=== PATIENT | female | born 1980 | race Caucasian/White ===

== ENCOUNTER 2022-09-10 01:23 | Emergency (ER) | payer BC, SELFPAY ==
[2022-09-10 01:42] VITALS: BP 144/79; PULSE 88; RESP 16; TEMP 37.1; O2SAT 97; BMI 42.9
--- NOTE | 2022-09-10 02:09 | CRLHL7_ITS ---
For Patients: As a result of the Century Cures Act, medical imaging exams and procedure reports are released immediately into your electronic medical record. You may view this report before your referring provider. If you have questions, please contact your health care provider. INDICATION: Medial joint line pain after fall. COMPARISON: None available. FINDINGS: The left knee was examined with AP, lateral, and sunrise views for a total of three views. There is no sign of fracture or dislocation. There is mild narrowing of the medial joint compartment with no additional degenerative change, findings of minimal primary osteoarthritis. The lateral joint compartment is normal in height. There is mild lateral patellar tilt, with no additional abnormality of the patellofemoral articulation. There is no sign of a joint effusion. No soft tissue abnormality is seen. IMPRESSION: No sign of acute osseous injury. Mild medial joint compartment primary osteoarthritis. Mild lateral patellar tilt. Dictated by Jarad Hanson MD @ 09/10/2022 2:53:12 AM (Electronically Signed)
--- NOTE | 2022-09-10 02:10 | ED_ITS ---
HPI - General Adult General Chief complaint: Extremity Pain/Injury, Lower Stated complaint: Left Knee Injury Time Seen by Provider: 09/10/22 01:41 Source: patient and family Mode of arrival: ambulatory Limitations: no limitations History of Present Illness HPI narrative: 42-year-old female with left knee injury tonight. She was walking across hard wood floor with socks on when she suddenly slipped. This caused her left knee to just out to the side and caused her to fall forward. She did catch herself somewhat and was able to help get herself up to standing but could not fully bear weight. She went to the bathroom and then went back to the bed with the help of her . She tried applying ice, did not take any medication. Pain is located in the posterior knee but mainly in the medial joint line, s urrounding the patellar tendon insertion area. She has sprained this knee in the past but no major history of severe injury or prior surgery. No history of DVT or PE. No other areas of injury identified. She states that her past medical history is benign, no major long-term health problems. No prescription medicines. Allergies to penicillin and strawberries. No intoxication. ROS is negative for other generalized, skin or musculoskeletal concerns. Related Data Allergies Allergy/AdvReac Type Severity Reaction Status Date / Time Penicillins Allergy Intermediate Verified 09/10/22 01:41 strawberries Allergy Intermediate Uncoded 09/10/22 01:41 [facility] Social History Smoking Status: Never smoker Do you use any of these nicotine containing products: None Exam Const: Vital Signs, click to edit/add: Vital Signs - 24 hr 09/10/22 01:42 Temperature 98.8 F Pulse Rate [Right Pulse Oximeter] 88 Respiratory Rate 16 Blood Pressure [Ri ght Upper Arm] 144/79 H Pulse Oximetry 97 Oxygen Delivery Me thod Room Air Documenting provider has reviewed patient's vital signs: yes Common normals: no apparent distress and alert General appearance: cooperative, comfortable and well kempt HENMT: Common normals: normocephalic Head and scalp: normocephalic Eye: General eye: normal appearance of both eyes Resp: Common normals: no use of accessory muscles Effort & inspection: able to speak in complete sentences Cardio: Common normals: regular rate and peripheral pulses 2+ throughout Rate: regular rate Peripheral pulses: pulses 2+ throughout Extremity: Other: Right knee with normal range of motion, no effusion, normal strength min, no instability. Left knee has point tenderness along the medial joint line but no effusion or swelling. There is mild tenderness in the popliteal fossa but not on the hamstring tendons, patellar tendon, tibial plateau. Left ankle without swelling, bony tenderness or deformity. Left calf and left thigh appear normal with no bruising or swelling. Back on the left knee, varus and valgus maneuvers do localized tenderness to the medial joint line and cartilage area. No ligamentous instability. Neuro: Sensorium/orientation: alert Speech: speech normal Psych: Appearance: well kempt Attitude: engaged Activity/motor behavior: appropriate eye contact Insight: insight good Judgement: judgment good Skin: Common normals: no rashes or lesions noted General skin exam: no rashes or lesions noted Course Vital Signs Vital signs: Initial Vital Signs Temperature 98.8 F 09/10/22 01:42 Temperature Source Temporal Artery Scan 09/10/22 01:42 Pulse Rate 88 09/10/22 01:42 Respiratory Rate 16 09/10/22 01:42 Blood Pressure 144/79 H 09/10/22 01:42 Blood Pressure Mean 100 09/10/22 01:42 Pulse Oximetry 97 09/10/22 01:42 Oxygen Delivery Method Room Air 09/10/22 01:42 Vital Signs Temperature 98.8 F 09/10/22 01:42 Pulse Rate 88 09/10/22 01:42 Respiratory Rate 16 09/10/22 01:42 Blood Pressure 144/79 H 09/10/22 01:42 Pulse Oximetry 97 09/10/22 01:42 Oxygen Delivery Method Room Air 09/10/22 01:42 Temperature 98.8 F 09/10/22 01:42 Pulse Rate 88 09/10/22 01:42 Respiratory Rate 16 09/10/22 01:42 Blood Pressure 144/79 H 09/10/22 01:42 Pulse Oximetry 97 09/10/22 01:42 Oxygen Delivery Method Room Air 09/10/22 01:42 Medical Decision Making MDM Narrative Medical decision making narrative: Suspect mild internal knee derangement. X-ray recommended. Will give Toradol 10 mg p.o. x1. Anticipate normal x-ray, will be placed in knee immobilizer, may move to a hinged knee brace if she prefers, can purchase outpatient. Will be given crutches, instructions on Tylenol and NSAIDs and orthopedic follow-up if not improving in 7 days. Update: X-ray reviewed, reviewed plan of care with patient. Possible patellar subluxation that spontaneously reduced, high riding laterally deviated patella noted on x-ray. Will be placed in a knee immobilizer. Was given Toradol, is helping at rest. Counseled on ice, crutches and follow-up with ortho if symptoms are not improving in 7 days, verbalized understanding and agreement. Imaging Data knee xr: Attestation: I have reviewed the pertinent imaging results. My impression: No fracture. No effusion. Chronically laterally deviated high riding patella. At risk of subluxation. Radiologist's impression: IMPRESSION: No sign of acute osseous injury. Mild medial joint compartment primary osteoarthritis. Mild lateral patellar tilt. Discharge Plan Discharge Clinical Impression: Knee sprain Patient Disposition: Home w/ Parent or Adult Condition: Stable Instructions: Knee Sprain (DC) Additional Instructions: There are no signs of fracture on your x-ray. I do suspect a sprain of the MCL ligament and your medial meniscus. Often, these heal on their own without any complication. As we also discussed, this could have been a patellar subluxation, a common condition in women where the kneecap will slide slightly out of place and then back in place. If it happens on a repeated basis, there are treatments and interventions that can be made. Your x-ray was suggested that you are at risk of this though I cannot prove that this is what happened tonight. Elevate, rest and apply ice for the next 24 hours. Use crutches until you feel like you can safely bear weight which will likely be in 1-2 days. We will give you a knee brace that is probably a bit overkill. You may switch to a simpler [id number] brace at your convenience. If your symptoms are still very bothersome in 7 days, make a follow-up appointment with 1 of our orthopedic providers. Often, these types of injuries heal without complication and do not need an MRI unless you are still symptomatic longer than the expected time frame. Activity Level: Activity as Tolerated Discharge Diet: Regular Stand Alone Forms: [employer] Info Instructions
[2022-09-10] MEDS: KETOROLAC 10 MG TABLET PO (02:29)
== END 2022-09-10 03:26 | disposition home or self-care (01) ==
LOC: ED 03:11
PROVIDERS: Emergency Provider Family Medicine
DX: S83.92XA Sprain of unspecified site of left knee, initial encounter (principal); W01.0XXA Fall on same level from slipping, tripping and stumbling without subsequent striking against object, initial encounter
CPT/HCPCS: 73562; 99283; A9270

== ENCOUNTER 2024-08-15 21:02 | Emergency (ER) | payer BC, SELFPAY ==
--- OUTSIDE RECORDS SUMMARY | 2024-08-15 21:04 | XMS_ITS | Clinical Summary ---
Author Organization [facility] Address [facility] [place] [address] Care Team Providers Care House Mover Supervisor Name Role Phone Amalia Gonzalez MD Primary Care Provider + [phone] Allergies Active Allergy Reactions Criticality Noted Date Comments Benzoyl Peroxide 06/23/2016 Penicillins 06/23/2016 [place] Extract 06/23/2016 Medications lidocaine (LMX4) 4 % external cream Apply topically every 2 hours as needed (hemorrhoid pain) 45 g 2 Active multivitamin w/minerals (MULTI-VITAMIN) tablet Take 1 tablet by mouth daily Active Social History Tobacco Use Types Packs/Day Years Used Date Smoking Tobacco: Never Smokeless Tobacco: Never Tobacco Cessation:Counseling Given: Not Answered Alcohol Use Standard Drinks/Week Comments Not Asked 0 (1 standard drink = 0.6 oz pur e alcohol) rarely Adolescent Education Answer Date Record ed Getting School Help Needed Not on file 02/09 Comments No Sex and Gender Information Value Date Recorded Sex Assigned at Not on file Legal Sex Female 1:57 PM [employer] Gender Identity Not on file Sexual Orientation Not on file Last Filed Vital Signs Vital Sign Reading Time Taken Comments Blood Pressure 131/75 08/11/2022 10:20 AM CDT Pulse 61 08/11/2022 10:20 AM CDT Temperature 36.7 C (98.1 F) 01/26/2022 1:08 PM CDT Respiratory Rate 16 08/11/2022 10:20 AM CDT Oxygen Saturation 97% 08/11/2022 10:20 AM CDT Inhaled Oxygen Concentration - - Weight 113.4 kg (250 lb) 08/11/2022 8:56 AM CDT Height 162.6 cm (5' 4) 08/11/2022 8:56 AM CDT Body Mass Index 42.91 08/11/2022 8:56 AM CDT Plan of Treatment Health Maintenance Due Date Last Done Comments ADVANCE CARE PLANNING 1980 ANNUAL REVIEW OF HM ORDERS 1978 CT COLONOGRAPHY 1978 DIABETES SCREENING 1978 FIT 1978 FLEX SIG 1978 sDNA (Cologuard) 1978 HIV SCREENING 1993 HEPATITIS C SCREENING 1996 PAP 1999 LIPID 2018 YEARLY PREVENTIVE VISIT 04/03/2023 04/03/2022 COVID-19 Vaccine ( season) 2024 06/05/2022, 06/09/2021, 08/12/2020, Additional history exists INFLUENZA VACCINE (#1) 2024 , 04/01/2021, 04/07/2020, Additional history exists MAMMO SCREENING 04/04/2024 04/04/2022 PHQ-2 (once per calendar year) 2024 DTAP/TDAP/TD IMMUNIZATION (3 - Td or Tdap) 06/02/2024 06/02/2014, 02/19/2012, 06/09/2004 COLONOSCOPY 08/12/2027 08/11/2022, 08/11/2022 COLORECTAL CANCER SCREENING 08/12/2027 ZOSTER IMMUNIZATION (1 of 2) 2028 HEPATITIS B IMMUNIZATION Completed 003, 01/13/2002, 12/12/2001 HPV IMMUNIZATION Aged Out No longer e ligible based on patient's age to complete this topic MENINGITIS IMMUNIZATION Aged Out No l onger eligible based on patient's age to complete this topic Pneumococcal Vaccine: Pediatrics (0 to 5 Years) and At-Risk Patients (6 to 49 Years) Aged Out No longer eligible based on patient's age to complete this topic Procedures Procedure Name Priority Date/Time Associated Diagnosis Comments COLONOSCOPY Routine 08/11/2022 8:52 AM CDT from Last 3 Months or Most Recently Relevant to Health Maintenance Results * COLONOSCOPY (08/11/2022 8:52 AM CDT) [facility] [address] COLONOSCOPY [place] [address] [place] [address] Patient Name: Nela Vallejo Procedure Date: 08/11/2022 8:52 AM Date of : 1980 Admit Type: Outpatient Age: 42 Room: 1 Note Status: Finalized Attending MD: Citlali Contreras MD Total Sedation Time: 17 minutes Instrument Name: 525 [id number] Adult Colon Procedure: Colonoscopy Indications: Rectal bleeding Providers: Citlali Contreras MD, Martha Hernadez RN Referring MD: Medicines: Midazolam 3 mg IV, Fentanyl 100 micrograms IV Complications: No immediate complications. Procedure: Pre-Anesthesia Assessment: - Prior to the procedure, a History and Physical was performed, and patient medications and allergies were reviewed. The patient is competent. The risks and benefits of the procedure and the sedation options and risks were discussed with the patient. All questions were answered and informed consent was obtained. Patient identification and proposed procedure were verified by the physician and the nurse in the pre-procedure area. Mental Status Examination: alert and oriented. Airway Examination: normal oropharyngeal airway and neck mobility. Respiratory Examination: clear to auscultation. CV Examination: normal. Prophylactic Antibiotics: The patient does not require prophylactic antibiotics. Prior Anticoagulants: The patient has taken no anticoagulant or antiplatelet agents. ASA Grade Assessment: II - A patient with mild systemic disease. After reviewing the risks and benefits, the patient was deemed in satisfactory condition to undergo the procedure. The anesthesia plan was to use moderate sedation / analgesia (conscious sedation). Immediately prior to administration of medications, the patient was re-assessed for adequacy to receive sedatives. The heart rate, respiratory rate, oxygen saturations, blood pressure, adequacy of pulmonary ventilation, and response to care were monitored throughout the procedure. The physical status of the patient was re-assessed after the procedure. After obtaining informed consent, the colonoscope was passed under direct vision. Throughout the procedure, the patient's blood pressure, pulse, and oxygen saturations were monitored continuously. The colonoscope 525 was introduced through the anus and advanced to the cecum, identified by appendiceal orifice and ileocecal valve. The colonoscopy was performed without difficulty. The patient tolerated the procedure well. The quality of the bowel preparation was good. Findings: The perianal and digital rectal examinations were normal. Internal hemorrhoids were found during retroflexion. The hemorrhoids were Grade I (internal hemorrhoids that do not prolapse). The exam was otherwise without abnormality on direct and retroflexion views. Impression: - Internal hemorrhoids. - The examination was otherwise normal on direct and retroflexion views. - No specimens collected. Recommendation: - Discharge patient to home. - Patient has a contact number available for emergencies. The signs and symptoms of potential delayed complications were discussed with the patient. Return to normal activities tomorrow. Written discharge instructions were provided to the patient. - Repeat colonoscopy in 5 years for screening purposes. Procedure Code(s): --- Professional --- 00072, Colonoscopy, flexible; diagnostic, including collection of specimen(s) by brushing or washing, when performed (separate procedure) Diagnosis Code(s): --- Professional --- K64.0, First degree hemorrhoids K62.5, Hemorrhage of anus and rectum CPT copyright 2020 [employer]. All rights reserved. The codes documented in this report are preliminary and upon advertising vice president review may be revised to meet current compliance requirements. Electronic Signature by Dr Citlali Contreras Citlali Contreras MD 08/11/2022 10:11:50 AM I was physically present for the entire viewing portion of the exam. Citlali Contreras MD Number of Addenda: 0 Note Initiated On: 08/11/2022 8:52 AM Scope Withdrawal Time: 0 hours 9 minutes 22 seconds Total Procedure Duration: 0 hours 15 minutes 45 seconds Scope In: 9:39:29 AM Scope Out: 9:55:14 AM RADIOLOGY RESULTS 08/11/2022 8:52 AM CDT us Citlali Contreras MD PROCEDURES Final Re sult RADIOLOGY RESULTS from Last 3 Months or Most Recently Relevant to Health Maintenance Insurance [facility] Care Teams House Mover Supervisor Relationship Specialty [place] [address] [place], [place] [id number] PCP - General Family Medicine 08/11/22
--- OUTSIDE RECORDS SUMMARY | 2024-08-15 21:05 | XMS_ITS | Clinical Summary ---
Author Organization [employer] Address [facility] [place] [address] Care Team Providers Care Cvicu Rn Name Role Phone Leigh Sidhu Katherine L THERMOFORMING OPERATOR Unavailable [phone] Nathaniel Bashir Primary Care Provider Allergies Active Allergy Reactions Criticality Noted Date Comments Benzoyl Peroxide 07/18/2006 edema Penicillins Rash 07/18/2006 [place] Edema 06/26/2016 Facial swelling Medications cetirizine (ZYRTEC) 10 mg tablet Take 1 tablet by mouth once daily. 0 0 Active metroNIDAZOLE 1 % topical gel APPLY TOPICALLY TO THE FACE ONCE DAILY 0 Active medication order composer Multivitamins 0 0 Active SUMAtriptan (IMITREX) 100 mg tabletIndicatio ns:Other migraine without status migrainosus, not intractable Take 1 Tablet (100 mg) by mouth every 2 hours if needed for Migraine. Give at minimum 2hrs apart. Max Dose: 200mg per 24hrs. 10 Tablet 3 3 Active buPROPion (WELLBUTRIN XL) 150 mg Extended-Releas e tabletIndicatio ns:Morbid obesity with BMI of 40.0-44.9, adult (HC) Take 1 Tablet (150 mg) by mouth once daily in the morning. 14 Tablet 4 Active buPROPion (WELLBUTRIN XL) 300 mg Extended-Releas e tabletIndicatio ns:Morbid obesity with BMI of 40.0-44.9, adult (HC) Take 1 Tablet (300 mg) by mouth once daily. Take after completing 14 days of 150mg dose. 90 Tablet 4 Active Active Problems Problem Noted Date Diagnosed Date Cyst of bone of right foot 06/04/2024 Class 3 severe obesity with body mass index (BMI) of 40.0 to 44.9 in adult 11/26/2023 Prediabetes 11/26/2023 Neuropathy 11/26/2023 Plantar fasciitis 11/27/2018 Environmental allergies 01/05/2009 Other acne 07/18/2006 Esophageal reflux 07/18/2006 Hiatal hernia 07/18/2006 Migraine, unspecified, witho ut mention of intractable migraine without mention of status migrainosus 05/21/1998 Resolved Problems Problem Noted Date Diagnosed Date Resolved Date AMA (advanced maternal age) multigravida 35+ 4 10/17/2023 Supervision of other normal 04/07/2014 10/17/2023 PROM (premature rupture of membranes) 08/14/2012 05/04/2020 Supervision of normal first 12/21/2011 04/07/2014 Hyperprolactinemia 06/03/2010 2 Diaphragmatic hernia without mention of obstruction or gangrene 07/18/2006 08/25/2011 Encounters Date Type Department Care Team Description 06/04/2024 11:30 AM WORKERS COMPENSATION CLAIMS SUPERVISOR Office Visit [facility] [id number] [place] [id number] Nathaniel Bashir PA Pre-Op Exam (06/09/24, cyst removal on foot ) 06/04/2024 Travel from Last 3 Months Immunizations Immunization Administration Dates Next Due AMB Influenza, IIV4 PF (=>6 mos Flulaval,Fluzone Fluarix)(Flu Clinic Only) 04/07/2020 COVID-19 vaccine (Moderna 100mcg/0.5mL) PF, MDV 07/15/2020 Hepatitis B (Adult) 06/19/2002,01/13/2002,2001 Influenza Virus, Unspecified 04/20/2016 Influenza, IIV3 (Age >=3 years) 02/27/2013,03/18,07/05/2006 Influenza, IIV4 05/26/2023,,03/19/2019,2017,02/12/2014 Influenza,CCIIV4 PRESERV FREE 04/20/2022 Td (Age >=7 Years) 06/09/2004 Tdap 06/02/2014,02/19/2012 Family History Medical History Relation Name Comments Celiac disease Daughter x 2 Diabetes Father prediabetes Hyperlipidemia Father Asthma Maternal Grandfather Cancer Maternal Grandfather prostat e Cancer Maternal Grandmother uterine CA Cancer-breast Maternal Grandmother Hypertension Maternal Grandmother Asthma Mother due to allergie s Hyperlipidemia Mother Hypertension Mother Sleep apnea Mother ALS Paternal Grandfather Good Health Paternal Grandmother Good Health Sister Relation Name Status Comments Daughter x 2 Alive Father Alive Maternal Grandfather Maternal Grandmother Mother Alive Paternal Grandfather Paternal Grandmother Alive Sister Alive Social History Tobacco Use Types Packs/Day Years Used Date Smoking Tobacco: Never Smokeless Tobacco: Never Tobacco Cessation:Counseling Given: Yes Alcohol Use Standard Drinks/Week Comments No 0 (1 standard drink = 0.6 oz pur e alcohol) rare, couple drinks per year PHQ-2 Answer Date Recorded PHQ-2 TOTAL SCORE 0 10/17/2023 Social Connections Answer Date Recorded Do you often feel lonely or isolated from those around you? 0 09/14/2023 Financial Resource Strain Answer Date R ecorded Difficulty of Paying Living Expenses 3 09/14/2023 Difficulty of Paying Living Expenses Not on file 09/14/2023 Food Insecurity Answer Date Recorded Do you worry your food will run out before you are able to buy more? 1 09/14/2023 Transportation Needs Answer Date Record ed Does lack of transportation keep you from medica l appointments? 1 09/14/2023 Does lack of transportation keep you from work, meetings or getting things that you need? 1 09/14/2023 Housing Stability Answer Date Recorded What is your housing situation today? 1 09/14/2023 Utilities Answer Date Recorded Do you have trouble paying f or utilities (for example, heat, electricity, water, phone)? 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 on file Not on file Not on file Obstetrics History Para Term AB IAB SAB Ectopic Multiple Livin g Live Births 2 2 1 1 0 0 0 0 0 2 2 Date Outcome GA Total Labor Labor/2nd/3rd Weight Sex Type Anes PTL Zee A1 A5 Name Clin 013 Term 41w 0d 3.12 kg (6 lb 14 oz) F Vag Livin g 8 9 Judit Delivery Location:[facility] 015 36w 0d 3.06 kg (6 lb 11.9 oz) F Vag Livin g 9 SPORS, BABY GIRL (NELA) Delivery Location:[facility] Last Filed Vital Signs Vital Sign Reading Time Taken Comments Blood Pressure 126/80 06/04/2024 11:33 AM WORKERS COMPENSATION CLAIMS SUPERVISOR Pulse 68 06/04/2024 11:33 AM WORKERS COMPENSATION CLAIMS SUPERVISOR Temperature 36.8 C (98.2 F) 06/04/2024 11:33 AM WORKERS COMPENSATION CLAIMS SUPERVISOR Respiratory Rate 20 05/07/2024 4:55 PM WORKERS COMPENSATION CLAIMS SUPERVISOR Oxygen Saturation 97% 06/04/2024 11: 33 AM WORKERS COMPENSATION CLAIMS SUPERVISOR Inhaled Oxygen Concentration - - Weight 121.5 kg (267 lb 12.8 oz) 2024 11:33 AM WORKERS COMPENSATION CLAIMS SUPERVISOR Height 164 cm (5' 4.57) 06/04/2024 11: 33 AM WORKERS COMPENSATION CLAIMS SUPERVISOR Body Mass Index 45.16 06/04/2024 11:33 AM WORKERS COMPENSATION CLAIMS SUPERVISOR Plan of Treatment Health Maintenance Due Date Last Done Comments COVID-19 vaccine series ( season) 2024 06/05/2022, 06/09/2021, 08/12/2020, Additional history exists Influenza Vaccine (#1) 2024 4, 04/20/2022, 04/01/2021, Additional history exists Pap test for age 21-65 03/18/2024 9, 03/18/2019, 01/09/2014, Additional history exists Tetanus booster 06/02/2024 06/02/2014, 10/0 05/2011, 06/09/2004 Mammogram for age 45-75 07/17/2024 07/17/19 24, 04/04/2022, 04/02/2019, Additional history exists Depression screening for age 12+ 10/16/2024 10/17/2023, 10/13/2021, 10/13/2021, Additional history exists BMI (ht and wt on same day) for age 18+ 06/04/2025 06/04/2024, 03/06/2024, 11/26/2023, Additional history exists Lipids for age 45-75 01/05/2028 01/04/2023, 04/03/2022, 06/29/2020, Additional history exists Colonoscopy through age 75 08/11/203208/11 (Verified in Care Everywhere or Patient Record) Tdap Completed 06/02/2014, 02/19/2012 Hepatitis C screening for age 18-79 Completed 04/03/2022 HIV for age 15-65 Completed 04/13/2023, , 12/21/2011, Additional history exists Pneumococcal series for age 6-49 Aged Out No longer eligible based on patient's age to complete this topic Procedures Procedure Name Priority Date/Time Associated Diagnosis Comments XR MAMMO KIM BILAT SCREEN Routine 07/17/2023 5:03 PM WORKERS COMPENSATION CLAIMS SUPERVISOR Visit for screening mammogram ANTI HIV 1/2 Routine 04/13/2023 12:07 PM WORKERS COMPENSATION CLAIMS SUPERVISOR Peripheral nerve disorder LIPID PANEL W REFLEX MEASURED LDL Routine 01/04/2023 9:02 AM CDT Lipid screening ANTI HCV Routine 04/03/2022 4:55 PM WORKERS COMPENSATION CLAIMS SUPERVISOR Need for hepatitis C screening test LENS FINISHER THIN PREP PAP SCREEN IMAGED Routine 03/18/2019 4:40 PM CDT Cervical cancer screening from Last 3 Months or Most Recently Relevant to Health Maintenance Results * XR MAMMO KIM BILAT SCREEN (07/17/2023 5:03 PM WORKERS COMPENSATION CLAIMS SUPERVISOR) Anatomical Region Laterality Modality BREASTS, Breast Left, Breast Right Bilateral Mammography Impressions 07/18/2023 2:14 PM WORKERS COMPENSATION CLAIMS SUPERVISOR There is no radiographic evidence for malignancy. Recommend annual mammograms. MAMMOGRAM ASSESSMENT: ACR 1 Negative PATIENTS: You will also receive a letter with your examination results in an easy to read format. If you have questions about your results, please contact your referring provider. Narrative 07/18/2023 2:14 PM WORKERS COMPENSATION CLAIMS SUPERVISOR For Patients: As a result of the Century Cures Act, medical imaging exams and procedure reports are released immediately into your electronic medical record. You may view this report before your referring provider. If you have questions, please contact your health care provider. XR MAMMO KIM BILAT SCREEN [[id number]] CLINICAL HISTORY: This is an asymptomatic 43 y.o. patient. INDICATION FOR EXAM: Mammogram Screening. TECHNIQUE: CC & MLO views were obtained. This study was evaluated with the assistance of Computer-Aided Detection. Breast Tomosynthesis was used in interpretation. COMPARISON FILM: Yes [facility] FINDINGS: The breasts have scattered areas of fibroglandular density. There are no dominant masses, suspicious micro calcifications or areas of architectural distortion. Amalia Gonzalez MD MAMMO Final Result * ANTI HIV 1/2 (04/13/2023 12:07 PM WORKERS COMPENSATION CLAIMS SUPERVISOR) HIV-1/HIV-2 SCREEN Non-Reacti ve Non-Reacti ve 04/13/2023 9:34 PM WORKERS COMPENSATION CLAIMS SUPERVISOR [facility] Comment:HIV-1 p24 and HIV-1/ HIV-2 Ab Not Detected. Blood BLOOD SPECIMEN / Unknown Venipuncture / Unknown 04/13/2023 12:07 PM WORKERS COMPENSATION CLAIMS SUPERVISOR 04/13/2023 12:08 PM WORKERS COMPENSATION CLAIMS SUPERVISOR Brandi Araujo MD SEND OUTS Final Res ult [facility] [address] [place] [address], * (ABNORMAL) LIPID PANEL W REFLEX MEASURED LDL (01/04/2023 9:02 AM CDT) CHOLESTEROL,TOTAL 209(H) 100 - 199 mg/dL 01/04/2023 5:15 PM CDT [facility] Comment: Cholesterol, Total Reference Ranges Desirable <200 mg/dL Borderline 200-239 mg/dL High >=240 mg/dL TRIGLYCERIDES 267(H) <150 mg/dL 01/04/2023 5:15 PM CDT [facility] HDL CHOLESTEROL 40(L) >40 mg/dL 5:15 PM CDT [facility] NON-HDL CHOLESTEROL 169(H) <145 mg/dl 01/04/2023 5:15 PM CDT [facility] CHOL/HDL RATIO 5.23(H) <4.50 01/04/2023 5:15 PM CDT [facility] LDL CHOLESTEROL 116 <=130 mg/dL 01/04/2023 5:15 PM T [facility] VLDL CHOLESTEROL 53(H) <=30 mg/dL 01/04/2023 5:15 PM CDT [facility] PROVIDER ORDERED STATUS RANDOM 01/04/2023 5:15 PM CDT [facility] Blood BLOOD SPECIMEN / Unknown Butterfly / Unknown 01/04/2023 9:02 AM CDT 01/04/2023 9:02 AM CDT Librado Lieberman MD CHEMISTRY Final R esult [facility] [address] [place] [address], [place] * ANTI HCV (04/03/2022 4:55 PM WORKERS COMPENSATION CLAIMS SUPERVISOR) HEPATITIS C ANTIBODY Non-React taya Non-React taya 04/05/2022 2:18 AM WORKERS COMPENSATION CLAIMS SUPERVISOR [facility] Comment:Antibodies to HCV no t detected; does not exclude the possibility of exposure to HCV. Blood BLOOD SPECIMEN / Unknown Venipuncture / Unknown 04/03/2022 4:55 PM WORKERS COMPENSATION CLAIMS SUPERVISOR 04/03/2022 4:55 PM WORKERS COMPENSATION CLAIMS SUPERVISOR Amalia Gonzalez MD SEND OUTS Final Result [facility] [address] [place] [address], [place] * LENS FINISHER THIN PREP PAP SCREEN IMAGED (03/18/2019 4:40 PM CDT) Case Report Gynecologic Cytology Report Case: [id number] Authorizing Provider: Brandi Araujo MD Collected: 03/18/2019 1640 Ordering Location: [facility] Received: 03/18/2019 1641 Clinic First Screen: Rocky Guerrero Specimen: LENS FINISHER ThinPrep Vial Screening, Cervical 03/30/2019 11:26 AM WORKERS COMPENSATION CLAIMS SUPERVISOR [employer] [facility] INTERPRETATION/ RESULT NEGATIVE FOR INTRAEPITHELIAL LESION OR MALIGNANCY (NIL) (none) 03/30/2019 11:26 AM WORKERS COMPENSATION CLAIMS SUPERVISOR [facility] IMEN ADEQUACY Satisfactory for evaluation Endocervical component present 03/30/2019 11:26 AM WORKERS COMPENSATION CLAIMS SUPERVISOR [employer] [facility] HPV REQUEST HPV and PAP 03/30/2019 11:26 AM WORKERS COMPENSATION CLAIMS SUPERVISOR [employer] [facility] Date of LMP 03/11/19 03/30/2019 11:26 AM WORKERS COMPENSATION CLAIMS SUPERVISOR [facility] Last Pap Date 201303/30/2019 11:26 AM WORKERS COMPENSATION CLAIMS SUPERVISOR [facility] Last Pap Result NIL 11:26 AM WORKERS COMPENSATION CLAIMS SUPERVISOR [facility] Abnormal Pap or [place] Bx in last 5 years No 03/30/2019 11:26 AM WORKERS COMPENSATION CLAIMS SUPERVISOR [employer] [facility] Menstrual Status Regular Periods 03/30/2019 11:26 AM WORKERS COMPENSATION CLAIMS SUPERVISOR [employer] [facility] [place] Bx Done Today No 03/30/2019 11:26 AM WORKERS COMPENSATION CLAIMS SUPERVISOR [employer] [facility] Additional Information None given 03/30/2019 11:26 AM WORKERS COMPENSATION CLAIMS SUPERVISOR [employer] [facility] Automated Review Successful 03/30/2019 11:[address] [facility] Comment:Specimen processed s uccessfully by automated court reporter device, ThinPrep Imaging System, [employer] ANCILLARY TESTING LENS FINISHER HPV Ordered, Please see separate report 03/30/2019 11:26 AM WORKERS COMPENSATION CLAIMS SUPERVISOR [facility]AT[facility] Note The pap test is a screening technique, not a diagnostic procedure. It is used primarily to screen for squamous cancers and precursor lesions. Published studies have shown that it is subject to both false negative and false positive results. The pap test should not be used as the sole means to diagnose or exclude pre-malignant and malignant lesions. Cytology is screened and interpreted at [facility] - [address], [place] [address] and [facility] - [address]; [place] [address] and [facility] - [address]; [place] [address] and [facility] [address]; [place] [address] 03/30/2019 11:26 AM [facility] ENTRAL LAB[facility]ATORY Other (Cervical) Non-Blood / Unknown 03/18/2019 4:40 PM CDT 03/18/2019 4:41 PM CDT us Brandi Araujo MD PATHOLOGY/CYTOLOGY Final Result [facility] [address] [place] [address], [place] from Last 3 Months or Most Recently Relevant to Health Maintenance Insurance [facility] Advance Directives * Full Code (Latest Code Status on File) Date Activated Date Inactivated Comments 07/28/2014 5:23 AM 07/28/2014 3:50 PM * Full Code Date Activated Date Inactivated Comments 07/28/2014 4:39 AM 07/28/2014 5:23 AM * Full Code Date Activated Date Inactivated Comments 08/14/2012 9:44 PM 08/17/2012 6:50 PM * Full Code Date Activated Date Inactivated Comments 08/14/2012 7:23 PM 08/14/2012 9:44 PM Care Teams Cvicu Rn Relationship Specialty [place] [address] [place] [address] PCP - General Physician Strip Machine Operator 06/04/24 Leigh Sidhu DO [facility] 06/28/12 Jenny Levy, MARIA R [address] [place] [address] Nurse Practitioner - Family 01/25/24
--- NOTE | 2024-08-15 21:16 | ED.GENADULT ---
HPI - General Adult General Time Seen by Provider: 21:16 <Fallon Choudhury MD - Last Filed: 08/17/24 21:20> Date Seen: 08/15/24 <Fallon Choudhury MD - Last Filed: 08/17/24 21:20> Chief complaint: Dizziness/Vertigo <Fallon Choudhury MD - Last Filed: 08/17/24 21:20> Stated complaint: vomiting/migraine/r side of face tingling <Fallon Choudhury MD - Last Filed: 08/17/24 21:20> Time Seen by Provider: 08/15/24 21:15 <Fallon Choudhury MD - Last Filed: 08/17/24 21:20> Source: patient and RN notes reviewed <Fallon Choudhury MD - Last Filed: 08/17/24 21:20> Mode of arrival: ambulatory <Fallon Choudhury MD - Last Filed: 08/17/24 21:20> Limitations: no limitations <Fallon Choudhury MD - Last Filed: 08/17/24 21:20> History of Present Illness HPI narrative: This 44-year-old female is coming with sudden onset of dizziness started about 830 tonight. Her symptoms actually started with nausea, then she started to feel dizzy which is described as a spinning sensation. She feels better if she holds still. With this she noticed her right face along the cheek and into the neck felt tingly or numb, more of a tingly sensation than true full numbness. She has bitemporal headache with this. She does have a history of headaches including migraines. Her migraines she will usually get visual disturbance without headache, she will take a Coke and some ibuprofen and symptoms will go away. She has had a remote history of benign positional vertigo. She felt like her ears were full yesterday, felt like some fluid actually drained out of her right ear. No trauma. She did not get any visual changes or scotoma with this. Outside of the nausea from the dizzy feeling, she has no abdominal symptoms, no pain, no diarrhea or constipation. She states she had normal bowel movement in urination just prior to arrival. She did note yesterday that she had a little bit of right-sided neck pain for no apparent reason. Has not noted any incoordination with arms or legs. <Fallon Choudhury MD - Last Filed: 08/17/24 21:20> Related Data Home medications: Previous Rx's ?Medication ?Instructions ?Recorded diazepam 5 mg tablet (Valium) 5 mg PO TID PRN #9 tabs 08/15/24 meclizine 25 mg tablet 25 mg PO TID #30 tabs 08/15/24 <Fallon Choudhury MD - Last Filed: 08/17/24 21:20> Allergies/adverse reactions: Allergies Allergy/AdvReac Type Severity Reaction Status Date / Time Penicillins Allergy Intermediate Verified 08/15/24 22:24 strawberries Allergy Intermediate Uncoded 08/15/24 22:24 <Fallon Choudhury MD - Last Filed: 08/17/24 21:20> Review of Systems Status of ROS: Reports: 6 or more systems reviewed and unremarkable except as noted in History and below <Fallon Choudhury MD - Last Filed: 08/17/24 21:20> PFSH PFSH Social History: Social History Smoking Status: Never smoker Do you use any of these nicotine containing products: None Non-prescribed substance use: denies use <Fallon Choudhury MD - Last Filed: 08/17/24 21:20> Exam Const: Vital Signs, click to edit/add: Vital Signs - 24 hr 08/15/24 21:22 08/15/24 22:07 08/15/24 22:12 Temperature 98.0 F Pulse Rate [Pulse Oximeter] 68 Respiratory Rate 20 Blood Pressure 145/76 H Blood Pressure [Ri ght Upper Arm] 144/93 H Pulse Oximetry 100 98 Oxygen Delivery Me thod Room Air 08/15/24 22:22 08/15/24 22:42 Temperature Pulse Rate [Pulse Oximeter] Respiratory Rate 16 16 Blood Pressure 151/88 H 132/80 Blood Pressure [Ri ght Upper Arm] Pulse Oximetry 97 Oxygen Delivery Me thod This 44-year-old female is alert and interactive but purposefully trying to keep her eyes closed and hold still. She is holding onto an emesis bag. Speech is normal, symmetrical facial function. She does state her right cheek, jaw and into the right neck feel tingly but she can feel me touch, feels different than the other side. She still has normal motor movement on that side. TMs canals are normal. Pupils are equal round reactive, conjugate gaze, extraocular muscles are intact but she does have right beating nystagmus (horizontal). Neck is supple, no adenopathy or masses, no jugular venous distension. Lungs are clear, no wheezing or crackles, no tachypnea. CV regular rate and rhythm, no murmur. She can hold her arms out outstretched, strength is 5/5 and symmetric, no arm drift, no tremor, normal rapid alternating finger movements. Can lift each leg off the bed. Did not have her ambulate at this time. <Fallon Choudhury MD - Last Filed: 08/17/24 21:20> Vital Signs, click to edit/add: Vital Signs - 24 hr 08/15/24 21:22 08/15/24 22:07 08/15/24 22:12 Temperature 98.0 F Pulse Rate [Pulse Oximeter] 68 Respiratory Rate 20 Blood Pressure 145/76 H Blood Pressure [Ri ght Upper Arm] 144/93 H Pulse Oximetry 100 98 Oxygen Delivery Me thod Room Air 08/15/24 22:22 08/15/24 22:42 Temperature Pulse Rate [Pulse Oximeter] Respiratory Rate 16 16 Blood Pressure 151/88 H 132/80 Blood Pressure [Ri ght Upper Arm] Pulse Oximetry 97 Oxygen Delivery Me thod <Elizabeth Kaba MD - Last Filed: 08/16/24 00:38> Documenting provider has reviewed patient's vital signs: yes <Fallon Choudhury MD - Last Filed: 08/17/24 21:20> Course Course ED Course: This 44-year-old female definitely has vertigo, also associated is right facial and neck numbness sensation, bitemporal headache with this. She has had a history of benign positional vertigo, history of migraines but just with aura, no pain. This needs to be considered for intracranial pathology such as dissection, she notes some neck pain earlier this week. Central causes vertigo will be considered. Will initiate some IV Ativan and Zofran for symptom control. If she is doing better when she comes back from the imaging, can try some oral meclizine. We have discussed continuum from vertigo to migraines. Labs will also be done. She will be on pulse oximetry given Ativan, will also look at an EKG. <Fallon Choudhury MD - Last Filed: 08/17/24 21:20> Reevaluation(s) Time of Reevaluation #1: 22:46 <Fallon Choudhury MD - Last Filed: 08/17/24 21:20> Reevaluation #1: Patient is still feeling dizzy, still spinning. Her headache as improved. Did review her CT and her CTA findings. Did review the severe pulmonary artery dilation. She does have sleep apnea. Highly encourage her to follow up on this. We also reviewed the possible meningioma, need for non-emergent outpatient MRI. Will give her meclizine, will talk to neurology. <Fallon Choudhury MD - Last Filed: 08/17/24 21:20> Time of Reevaluation #2: 23:18 <Fallon Choudhury MD - Last Filed: 08/17/24 21:20> Reevaluation #2: Patient did get quite more symptomatic went up to the bathroom. Will see if she can keep the meclizine down. If she does okay with that, will likely give her oral Valium as that is 1 of the most potent vestibular drugs for suppression. <Fallon Choudhury MD - Last Filed: 08/17/24 21:20> Time of Reevaluation #3: 00:30 <Elizabeth Kaba MD - Last Filed: 08/16/24 00:38> Reevaluation #3: Dr. Kaba: I assumed care from evening provider. Patient plan of care reviewed. Re-evaluated after medications given by nursing team. They report patient having improvement of symptoms, comfortable with previously documented plan by evening provider. Will discharge with symptomatic treatment for benign vertigo. Prescriptions for diazepam and Zofran provided by evening provider. No additional concerns are interval development of new neurological changes in the interim. Lab and imaging studies reviewed as well as subspecialty recommendations. <Elizabeth Kaba MD - Last Filed: 08/16/24 00:38> Consultations Consultation #1: Spoke with Dr. Lund from stroke Neurology. He agrees that this is likely atypical migraine. Symptomatic treatment, plan for outpatient follow-up MRI to further workup possible meningioma. <Fallon Choudhury MD - Last Filed: 08/17/24 21:20> Time: 22:56 <Fallon Choudhury MD - Last Filed: 08/17/24 21:20> Vital Signs Vital signs: Initial Vital Signs Temperature 98.0 F 08/15/24 21:22 Temperature Source Temporal Artery Scan 08/15/24 21:22 Pulse Rate 68 08/15/24 21:22 Respiratory Rate 20 08/15/24 21:22 Blood Pressure 144/93 H 08/15/24 21:22 Blood Pressure Mean 110 H 08/15/24 21:22 Blood Pressure Position Sitting 08/15/24 21:22 Pulse Oximetry 100 08/15/24 21:22 Oxygen Delivery Method Room Air 08/15/24 21:22 Vital Signs Temperature 98.0 F 08/15/24 21:22 Pulse Rate 68 08/15/24 21:22 Respiratory Rate 20 08/15/24 21:22 Blood Pressure 144/93 H 08/15/24 21:22 Pulse Oximetry 100 08/15/24 21:22 Oxygen Delivery Method Room Air 08/15/24 21:22 Temperature 98.0 F 08/15/24 21:22 Pulse Rate 76 08/16/24 00:58 Respiratory Rate 16 08/16/24 00:58 Blood Pressure 138/76 08/16/24 00:58 Pulse Oximetry 97 08/15/24 22:42 Oxygen Delivery Method Room Air 08/15/24 21:22 <Fallon Choudhury MD - Last Filed: 08/17/24 21:20> Initial Vital Signs Temperature 98.0 F 08/15/24 21:22 Temperature Source Temporal Artery Scan 08/15/24 21:22 Pulse Rate 68 08/15/24 21:22 Respiratory Rate 20 08/15/24 21:22 Blood Pressure 144/93 H 08/15/24 21:22 Blood Pressure Mean 110 H 08/15/24 21:22 Blood Pressure Position Sitting 08/15/24 21:22 Pulse Oximetry 100 08/15/24 21:22 Oxygen Delivery Method Room Air 08/15/24 21:22 Vital Signs Temperature 98.0 F 08/15/24 21:22 Pulse Rate 68 08/15/24 21:22 Respiratory Rate 20 08/15/24 21:22 Blood Pressure 144/93 H 08/15/24 21:22 Pulse Oximetry 100 08/15/24 21:22 Oxygen Delivery Method Room Air 08/15/24 21:22 Temperature 98.0 F 08/15/24 21:22 Pulse Rate 76 08/16/24 00:58 Respiratory Rate 16 08/16/24 00:58 Blood Pressure 138/76 08/16/24 00:58 Pulse Oximetry 97 08/15/24 22:42 Oxygen Delivery Method Room Air 08/15/24 21:22 <Elizabeth Kaba MD - Last Filed: 08/16/24 00:38> Medications Administered Medications: Discontinued Medications Generic Name Dose Route Start Last Admin Trade Name Derekq PRN Reason Stop Dose Admin Diazepam 5 mg 08/15/24 23:19 08/15/24 23:23 Diazepam 5 Mg Tablet PO 08/15/24 23:20 5 mg ONCE ONE Administration Sodium Chloride 1,000 mls @ 500 mls/hr 08/15/24 21:23 08/15/24 23:02 0.9 % Sodium Chloride 1000 Ml IV 08/15/24 23:22 Infused .Q2H ESPERANZA Infusion Lorazepam 1 mg 08/15/24 21:24 08/15/24 21:26 Lorazepam 2 Mg/Ml Inj IVP 08/15/24 21:25 1 mg ONCE ONE Administration Meclizine HCl 25 mg 08/15/24 22:58 08/15/24 23:04 Meclizine Hcl 25 Mg Tablet PO 08/15/24 22:59 25 mg ONCE ONE Administration Ondansetron HCl 4 mg 08/15/24 21:23 08/15/24 21:26 Ondansetron 2 Mg/Ml Inj IVP 08/15/24 21:24 4 mg ONCE ONE Administration <Fallon Choudhury MD - Last Filed: 08/17/24 21:20> Discontinued Medications Generic Name Dose Route Start Last Admin Trade Name Jazymn PRN Reason Stop Dose Admin Diazepam 5 mg 08/15/24 23:19 08/15/24 23:23 Diazepam 5 Mg Tablet PO 08/15/24 23:20 5 mg ONCE ONE Administration Sodium Chloride 1,000 mls @ 500 mls/hr 08/15/24 21:23 08/15/24 23:02 0.9 % Sodium Chloride 1000 Ml IV 08/15/24 23:22 Infused .Q2H ESPERANZA Infusion Lorazepam 1 mg 08/15/24 21:24 08/15/24 21:26 Lorazepam 2 Mg/Ml Inj IVP 08/15/24 21:25 1 mg ONCE ONE Administration Meclizine HCl 25 mg 08/15/24 22:58 08/15/24 23:04 Meclizine Hcl 25 Mg Tablet PO 08/15/24 22:59 25 mg ONCE ONE Administration Ondansetron HCl 4 mg 08/15/24 21:23 08/15/24 21:26 Ondansetron 2 Mg/Ml Inj IVP 08/15/24 21:24 4 mg ONCE ONE Administration <Elizabeth Kaba MD - Last Filed: 08/16/24 00:38> Medical Decision Making Lab Data Lab results reviewed: Yes I reviewed the patient's lab results <Fallon Choudhury MD - Last Filed: 08/17/24 21:20> Labs: Lab Results 08/15/24 Range/Units 21:30 WBC 8.46 (4.50-11.00) K/uL RBC 4.94 (4.00-5.20) m/uL Hgb 12.9 (12.0-16.0) gm/dL Hct 39.8 (33.0-51.0) % MCV 81 (80-100) fL MCH 26 (26-34) pg MCHC 32 (32-36) gm/dL RDW Coeff of Sonja 14.4 (11.5-15.5) % Plt Count 262 (140-440) K/uL Neut % (Auto) 69.2 (42.0-72.0) % Lymph % (Auto) 21.6 (20-44) % [place] % (Auto) 5.3 (0.0-11.0) % Eos % (Auto) 2.7 (0.0-7.0) % Baso % (Auto) 0.5 (0.0-3.0) % Neut # (Auto) 5.85 (1.7-7.0) K/uL Lymph # (Auto) 1.83 (0.90-2.90) K/uL [place] # (Auto) 0.40 (0.00-0.90) K/UL Eos # (Auto) 0.23 (0.00-0.50) K/uL Baso # (Auto) 0.04 (0.00-0.30) K/uL Abs Immat Gran (auto) 0.06 (0.00-0.30) K/uL Imm/Tot Granulo (auto) 0.7 % INR 0.94 (0.91-1.10) APTT 25 (23-33) Seconds Sodium 137 (135-149) mmol/L Potassium 3.8 (3.6-5.1) mmol/L Chloride 104 (96-114) mmol/L Carbon Dioxide 23 (20-32) mmol/L Anion Gap 10 (7-15) mEq/L BUN 10 (5-24) mg/dL Creatinine 0.6 (0.5-1.5) mg/dL Estimated Creat Clear 101.17 Estimated GFR 112 ml/min Glucose 171 H (60-115) mg/dL Calcium 9.4 (8.4-10.6) mg/dL Magnesium 2.0 (1.5-2.6) mg/dL Total Bilirubin 0.6 (0.1-1.5) mg/dL AST 45 H (12-35) U/L ALT 51 H (4-35) U/L Alkaline Phosphatase 72 (40-150) U/L C-Reactive Protein 1.2 H (0.5-1.0) mg/dL Total Protein 7.3 (6.0-8.3) g/dL Albumin 4.6 (3.3-5.0) g/dL <Fallon Choudhury MD - Last Filed: 08/17/24 21:20> Lab Results 08/15/24 Range/Units 21:30 WBC 8.46 (4.50-11.00) K/uL RBC 4.94 (4.00-5.20) m/uL Hgb 12.9 (12.0-16.0) gm/dL Hct 39.8 (33.0-51.0) % MCV 81 (80-100) fL MCH 26 (26-34) pg MCHC 32 (32-36) gm/dL RDW Coeff of Sonja 14.4 (11.5-15.5) % Plt Count 262 (140-440) K/uL Neut % (Auto) 69.2 (42.0-72.0) % Lymph % (Auto) 21.6 (20-44) % [place] % (Auto) 5.3 (0.0-11.0) % Eos % (Auto) 2.7 (0.0-7.0) % Baso % (Auto) 0.5 (0.0-3.0) % Neut # (Auto) 5.85 (1.7-7.0) K/uL Lymph # (Auto) 1.83 (0.90-2.90) K/uL [place] # (Auto) 0.40 (0.00-0.90) K/UL Eos # (Auto) 0.23 (0.00-0.50) K/uL Baso # (Auto) 0.04 (0.00-0.30) K/uL Abs Immat Gran (auto) 0.06 (0.00-0.30) K/uL Imm/Tot Granulo (auto) 0.7 % INR 0.94 (0.91-1.10) APTT 25 (23-33) Seconds Sodium 137 (135-149) mmol/L Potassium 3.8 (3.6-5.1) mmol/L Chloride 104 (96-114) mmol/L Carbon Dioxide 23 (20-32) mmol/L Anion Gap 10 (7-15) mEq/L BUN 10 (5-24) mg/dL Creatinine 0.6 (0.5-1.5) mg/dL Estimated Creat Clear 101.17 Estimated GFR 112 ml/min Glucose 171 H (60-115) mg/dL Calcium 9.4 (8.4-10.6) mg/dL Magnesium 2.0 (1.5-2.6) mg/dL Total Bilirubin 0.6 (0.1-1.5) mg/dL AST 45 H (12-35) U/L ALT 51 H (4-35) U/L Alkaline Phosphatase 72 (40-150) U/L C-Reactive Protein 1.2 H (0.5-1.0) mg/dL Total Protein 7.3 (6.0-8.3) g/dL Albumin 4.6 (3.3-5.0) g/dL <Elizabeth Kaba MD - Last Filed: 08/16/24 00:38> Imaging Data CT scan - head: Attestation: I have reviewed the pertinent imaging results. <Fallon Choudhury MD - Last Filed: 08/17/24 21:20> Radiologist's impression: Patient: JILLIAN GOMEZ Facility:?[facility] Patient ID:?[id number] Site Patient ID:?[id number]. Site :?[id number] Study:?CT-Head WITHOUT NON ACUTE-08/15/2024 10:03:19 PM Ordering Physician:?Kei Lehman Final Report: Indication: Vertigo, headache, right facial/neck numbness Technique: Noncontrast CT through the head with multiplanar reformats Comparison: None Findings: Brain: No acute hemorrhage. No acute infarct. No significant mass effect or midline shift. No gross evidence of a mass lesion or cerebral edema. Very tiny hyperdensity along the left anterior falx measuring 5 millimeters likely represents a small partially calcified meningioma. Ventricles: No acute abnormality appreciated. Orbits, sinuses, mastoids: No acute abnormality appreciated. Calvarium and soft tissues: No acute abnormality appreciated. Impression: 1. No acute intracranial abnormality appreciated. 2. Suspect subcentimeter meningioma along the left anterior falx. Nonemergent outpatient contrast-enhanced MRI recommended for further characterization. Please note that all CT scans at this facility use dose modulation, iterative reconstruction, and/or weight-based dosing when appropriate to reduce radiation dose to as low as reasonably achievable. Dictated by Iam Ford MD @ 08/15/2024 10:16:07 PM (Electronic Signature) <Fallon Choudhury MD - Last Filed: 08/17/24 21:20> CT- Other: Attestation: I have reviewed the pertinent imaging results. <Fallon Choudhury MD - Last Filed: 08/17/24 21:20> Radiologist's impression: Patient: JILLIAN GOMEZ Facility:?[facility] Patient ID:?[id number] Site Patient ID:?[id number]. Site :?[id number] Study:?CT-Neck Angio Angio 95CC ISOVUE 370 NONACUTE-08/15/2024 10:03:33 PM Ordering Physician:Edson Lehman Preliminary Report: Indication: Vertigo, headache, right facial numbness Technique: CT angiogram of the head and neck following 95 mL Isovue 370 IV contrast. Multiplanar MIP images obtained. Comparison: None Findings: Preliminary report, full report to follow. 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 CTA head: No acute abnormality appreciated. CTA neck: No acute abnormality appreciated. Dictated by Iam Ford MD @ 08/15/2024 10:19:48 PM Read by:?Iam Ford MD @08/15/2024 10:19:59 PM <Fallon Choudhury MD - Last Filed: 08/17/24 21:20> ECG Data Attestation: I personally reviewed and interpreted this ECG as follows: (Normal sinus rhythm, 63 beats per minute. No active ischemic change. Do not appreciate any definite infarct.) <Fallon Choudhury MD - Last Filed: 08/17/24 21:20> Prior ECG tracings: not available for review <Fallon Choudhury MD - Last Filed: 08/17/24 21:20> Discharge Plan Discharge Clinical Impression: Vertigo <Fallon Choudhury MD - Last Filed: 08/17/24 21:20> Patient Disposition: Home, Self-Care <Fallon Choudhury MD - Last Filed: 08/17/24 21:20> Condition: Stable <Fallon Choudhury MD - Last Filed: 08/17/24 21:20> Instructions: Vertigo (ED) <Fallon Choudhury MD - Last Filed: 08/17/24 21:20> Additional Instructions: It remains to be seen if this was an atypical migraine with vertigo versus development of vertiginous process like vestibular neuronitis or labyrinthitis. Will have you continue with meclizine 25 mg 3 times a day for the next couple of days if you have ongoing vertigo. If you wake up fine tomorrow and have no symptoms, you should be fine not taking this. Have also sent prescription for Valium for few tablets in case you do have ongoing vertigo. If this is something like vestibular neuronitis or labyrinthitis, symptoms can go on for days sometimes to weeks. You do need to schedule follow-up in clinic regardless. Brain MRI has been recommended to further evaluate probable small meningioma seen on CT. I also need you to review the dilated pulmonary artery and get a referral to either a aircraft sheet metal mechanic or document specialist specializing in this. Your primary care provider can order an echo for further evaluation. <Fallon Choudhury MD - Last Filed: 08/17/24 21:20> Activity Level: Activity as Tolerated <Fallon Choudhury MD - Last Filed: 08/17/24 21:20> Activity as Tolerated <Elizabeth Kaba MD - Last Filed: 08/16/24 00:38> Prescriptions: New meclizine 25 mg tablet 25 mg PO TID Qty: 30 0RF diazepam [Valium] 5 mg tablet 5 mg PO TID PRNQty: 9 0RF <Fallon Choudhury MD - Last Filed: 08/17/24 21:20> Follow Up/Referrals: Provider,Not a Local [Primary Care Provider] - <Fallon Choudhury MD - Last Filed: 08/17/24 21:20> Stand Alone Forms: [employer] Info Instructions <Fallon Choudhury MD - Last Filed: 08/17/24 21:20>
--- NOTE | 2024-08-15 21:21 | CRLHL7_ITS ---
For Patients: As a result of the Century Cures Act, medical imaging exams and procedure reports are released immediately into your electronic medical record. You may view this report before your referring provider. If you have questions, please contact your health care provider. INDICATION: Vertigo, headache, right facial and neck numbness. TECHNIQUE: CTA neck with contrast bolus tracking, 3D angiographic rendering using maximum intensity projection (MIP) and images permanently archived. FINDINGS: There is no significant carotid artery stenosis or dissection. There is no significant vertebral artery stenosis or dissection. The soft tissues of the neck are within normal limits. The cervical spine is in normal alignment. IMPRESSION: Unremarkable neck CTA. No significant carotid or vertebral artery stenosis or dissection. Please note that all CT scans at this facility use dose modulation, iterative reconstruction, and/or weight-based dosing when appropriate to reduce radiation dose to as low as reasonably achievable. Dictated by Timo Angela MD @ 08/16/2024 10:59:17 AM (Electronically Signed)
--- NOTE | 2024-08-15 21:21 | CRLHL7_ITS ---
For Patients: As a result of the Century Cures Act, medical imaging exams and procedure reports are released immediately into your electronic medical record. You may view this report before your referring provider. If you have questions, please contact your health care provider. Indication: Vertigo, headache, right facial/neck numbness Technique: Noncontrast CT through the head with multiplanar reformats Comparison: None Findings: Brain: No acute hemorrhage. No acute infarct. No significant mass effect or midline shift. No gross evidence of a mass lesion or cerebral edema. Very tiny hyperdensity along the left anterior falx measuring 5 millimeters likely represents a small partially calcified meningioma. Ventricles: No acute abnormality appreciated. Orbits, sinuses, mastoids: No acute abnormality appreciated. Calvarium and soft tissues: No acute abnormality appreciated. Impression: 1. No acute intracranial abnormality appreciated. 2. Suspect subcentimeter meningioma along the left anterior falx. Nonemergent outpatient contrast-enhanced MRI recommended for further characterization. Please note that all CT scans at this facility use dose modulation, iterative reconstruction, and/or weight-based dosing when appropriate to reduce radiation dose to as low as reasonably achievable. Dictated by Iam Ford MD @ 08/15/2024 10:16:07 PM (Electronically Signed)
--- NOTE | 2024-08-15 21:21 | CRLHL7_ITS ---
For Patients: As a result of the Century Cures Act, medical imaging exams and procedure reports are released immediately into your electronic medical record. You may view this report before your referring provider. If you have questions, please contact your health care provider. INDICATION: Vertigo, headache, right facial numbness. TECHNIQUE: CTA head with contrast bolus tracking, 3D angiographic rendering using maximum intensity projection (MIP) and images permanently archived. FINDINGS: There is normal opacification of the intracranial vasculature. There is no large vessel occlusion. No aneurysm is identified. IMPRESSION: Unremarkable head CTA. ADDENDUM: Per preliminary report - Severe dilation of the pulmonary artery measuring 4.3 centimeters compatible with pulmonary hypertension. Please note that all CT scans at this facility use dose modulation, iterative reconstruction, and/or weight-based dosing when appropriate to reduce radiation dose to as low as reasonably achievable. Dictated by Timo Angela MD @ 08/16/2024 11:01:06 AM (Electronically Signed)
[2024-08-15 21:22] VITALS: BP 144/93; PULSE 68; RESP 20; TEMP 36.7; O2SAT 100; BMI 46.3
[2024-08-15] MEDS: ONDANSETRON 2 MG/ML inj 4 MG IVP (21:26)
[2024-08-15] MEDS: LORazepam 2 MG/ML inj 1 MG IVP (21:26)
[2024-08-15] MEDS: 0.9 % SODIUM CHLORIDE 1000 ml 1,000 ML 500 ML IV (21:30)
[2024-08-15 21:38] LABS: Basophils Absolute Auto 0.04 K/uL (0.00-0.30); Basophils Percent Auto 0.5 % (0.0-3.0); Eosinophils Absolute Auto 0.23 K/uL (0.00-0.50); Eosinophils Percent Auto 2.7 % (0.0-7.0); Hematocrit 39.8 % (33.0-51.0); Hemoglobin* 12.9 gm/dL (12.0-16.0); Immature Granulocytes Abs Auto 0.06 K/uL (0.00-0.30); Immature Granulocytes Pct Auto 0.7 %; Lymphocytes Absolute Auto 1.83 K/uL (0.90-2.90); Lymphocytes Percent Auto 21.6 % (20-44); Mean Corpuscular HGB Conc 32 gm/dL (32-36); Mean Corpuscular Hemoglobin 26 pg (26-34); Mean Corpuscular Volume 81 fL (80-100); Monocytes Percent Auto 5.3 % (0.0-11.0); Neutrophils Absolute Auto 5.85 K/uL (1.7-7.0); Neutrophils Percent Auto 69.2 % (42.0-72.0); Platelet Count* 262 K/uL (140-440); RDW Coefficient of Variation % 14.4 % (11.5-15.5); Red Blood Count 4.94 m/uL (4.00-5.20); White Blood Count* 8.46 K/uL (4.50-11.00)
[2024-08-15 21:39] LABS: Slide Review Reflex No
[2024-08-15 21:54] LABS: Albumin* 4.6 g/dL (3.3-5.0); Chloride* 104 mmol/L (96-114); Potassium* 3.8 mmol/L (3.6-5.1); Sodium* 137 mmol/L (135-149)
[2024-08-15 21:56] LABS: Blood Urea Nitrogen* 10 mg/dL (5-24); Creatinine* 0.6 mg/dL (0.5-1.5); Est. Creatinine Clearance* 101.17; Estimated Glomerular Filt Rate 112 ml/min
[2024-08-15 21:57] LABS: Alanine Aminotransferase* 51 U/L (4-35); Alkaline Phosphatase* 72 U/L (40-150); Anion Gap 10 mEq/L (7-15); Aspartate Amino Transferase* 45 U/L (12-35); Bilirubin Total* 0.6 mg/dL (0.1-1.5); Calcium* 9.4 mg/dL (8.4-10.6); Carbon Dioxide* 23 mmol/L (20-32); Glucose* 171 mg/dL (60-115); Total Protein* 7.3 g/dL (6.0-8.3)
[2024-08-15 22:00] LABS: C Reactive Protein* 1.2 mg/dL (0.5-1.0)
[2024-08-15 22:07] VITALS: O2SAT 98
[2024-08-15 22:12] VITALS: BP 145/76
[2024-08-15 22:22] VITALS: BP 151/88; RESP 16
--- OUTSIDE RECORDS SUMMARY | 2024-08-15 22:25 | XMS_ITS | Clinical Summary ---
Author Organization [employer] Address [facility] [place] [address] Care Team Providers Care Sausage Smoker Name Role Phone Amalia Gonzalez MD Primary Care Provider + [phone] Allergies Active Allergy Reactions Criticality Noted Date Comments Benzoyl Peroxide 06/23/2016 Penicillins 06/23/2016 Crete Extract 06/23/2016 Medications lidocaine (LMX4) 4 % [...] on file Legal Sex Female 1:57 PM CUSTOM CLOTHIER Gender Identity Not on file Sexual Orientation [...] Results * COLONOSCOPY (08/11/2022 8:52 AM CDT) [facility] COLONOSCOPY [address] [place] [address] [place] [address] Patient Name: Nela Vallejo Procedure Date: 08/11/2022 8:52 AM Date of : 1980 Admit Type: Outpatient Age: 42 Room: 1 Note Status: Finalized Attending MD: Citlali Contreras MD Total Sedation Time: 17 minutes Instrument Name: 525 [id number] Adult Colon Procedure: Colonoscopy Indications: Rectal bleeding [...] screening purposes. Procedure Code(s): --- Professional --- 44065, Colonoscopy, flexible; diagnostic, including collection of specimen(s) by brushing or washing, when performed (separate procedure) Diagnosis Code(s): --- Professional --- K64.0, First degree hemorrhoids K62.5, Hemorrhage of anus and rectum CPT copyright 2020 [employer]. All rights reserved. The codes documented in this report are preliminary and upon professional fee coder review may be revised to meet current [...] Most Recently Relevant to Health Maintenance Insurance [id number] Care Teams Sausage Smoker Relationship Specialty [place] [address] [place], [place] [id number] PCP - General Family Medicine 08/11/22
--- OUTSIDE RECORDS SUMMARY | 2024-08-15 22:26 | XMS_ITS | Clinical Summary ---
Author Organization [employer] Address [facility] [place] [address] Care Team Providers Care Dragger Out Name Role Phone Leigh Sidhu Katherine L CUSTOM CLOTHIER Unavailable [phone] Nathaniel Bashir Primary Care Provider Allergies Active Allergy Reactions Criticality Noted Date Comments Benzoyl Peroxide 07/18/2006 edema Penicillins Rash 07/18/2006 [place] Edema 06/26/2016 Facial swelling Medications cetirizine (ZYRTEC) [...] Department Care Team Description 06/04/2024 11:30 AM HOSPITAL HOUSEKEEPER Office Visit [facility] [id number] [place] [id number] Nathaniel Bashir PA Pre-Op Exam (06/09/24, cyst [...] on file Legal Sex Female 5:27 AM HOSPITAL HOUSEKEEPER Gender Identity Not on file Sexual Orientation [...] Vag Livin g 8 9 Judit Delivery Location:[facility] 015 36w 0d 3.06 kg (6 lb 11.9 oz) F Vag Livin g 9 SPORS, BABY GIRL (NELA) Delivery Location:[facility] Last Filed Vital Signs Vital Sign Reading Time Taken Comments Blood Pressure 126/80 06/04/2024 11:33 AM HOSPITAL HOUSEKEEPER Pulse 68 06/04/2024 11:33 AM HOSPITAL HOUSEKEEPER Temperature 36.8 C (98.2 F) 06/04/2024 11:33 AM HOSPITAL HOUSEKEEPER Respiratory Rate 20 05/07/2024 4:55 PM HOSPITAL HOUSEKEEPER Oxygen Saturation 97% 06/04/2024 11: 33 AM HOSPITAL HOUSEKEEPER Inhaled Oxygen Concentration - - Weight 121.5 kg (267 lb 12.8 oz) 2024 11:33 AM HOSPITAL HOUSEKEEPER Height 164 cm (5' 4.57) 06/04/2024 11: 33 AM HOSPITAL HOUSEKEEPER Body Mass Index 45.16 06/04/2024 11:33 AM HOSPITAL HOUSEKEEPER Plan of Treatment Health Maintenance Due Date [...] KIM BILAT SCREEN Routine 07/17/2023 5:03 PM HOSPITAL HOUSEKEEPER Visit for screening mammogram ANTI HIV 1/2 Routine 04/13/2023 12:07 PM HOSPITAL HOUSEKEEPER Peripheral nerve disorder LIPID PANEL W REFLEX MEASURED LDL Routine 01/04/2023 9:02 AM CDT Lipid screening ANTI HCV Routine 04/03/2022 4:55 PM HOSPITAL HOUSEKEEPER Need for hepatitis C screening test SENIOR SOFTWARE DEVELOPMENT ENGINEER THIN PREP PAP SCREEN IMAGED Routine 03/18/2019 4:40 PM CDT Cervical cancer screening from Last 3 Months or Most Recently Relevant to Health Maintenance Results * XR MAMMO KIM BILAT SCREEN (07/17/2023 5:03 PM HOSPITAL HOUSEKEEPER) Anatomical Region Laterality Modality BREASTS, Breast Left, Breast Right Bilateral Mammography Impressions 07/18/2023 2:14 PM HOSPITAL HOUSEKEEPER There is no radiographic evidence for malignancy. Recommend annual mammograms. MAMMOGRAM ASSESSMENT: ACR 1 Negative PATIENTS: You will also receive a letter with your examination results in an easy to read format. If you have questions about your results, please contact your referring provider. Narrative 07/18/2023 2:14 PM HOSPITAL HOUSEKEEPER For Patients: As a result of the Century Cures Act, medical imaging exams and procedure reports are released immediately into your electronic medical record. You may view this report before your referring provider. If you have questions, please contact your health care provider. XR MAMMO KIM BILAT SCREEN [[id number]] CLINICAL HISTORY: This is an asymptomatic 43 y.o. patient. INDICATION FOR EXAM: Mammogram Screening. TECHNIQUE: CC & MLO views were obtained. This study was evaluated with the assistance of Computer-Aided Detection. Breast Tomosynthesis was used in interpretation. COMPARISON FILM: Yes [facility] FINDINGS: The breasts have scattered areas of fibroglandular density. There are no dominant masses, suspicious micro calcifications or areas of architectural distortion. Amalia Gonzalez MD MAMMO Final Result * ANTI HIV 1/2 (04/13/2023 12:07 PM HOSPITAL HOUSEKEEPER) HIV-1/HIV-2 SCREEN Non-Reacti ve Non-Reacti ve 04/13/2023 9:34 PM HOSPITAL HOUSEKEEPER [facility] Comment:HIV-1 p24 and HIV-1/ HIV-2 Ab Not Detected. Blood BLOOD SPECIMEN / Unknown Venipuncture / Unknown 04/13/2023 12:07 PM HOSPITAL HOUSEKEEPER 04/13/2023 12:08 PM HOSPITAL HOUSEKEEPER Brandi Araujo MD SEND OUTS Final Res ult [facility] [address] [place] [address], * (ABNORMAL) LIPID PANEL W REFLEX MEASURED LDL (01/04/2023 9:02 AM CDT) CHOLESTEROL,TOTAL 209(H) 100 - 199 mg/dL 01/04/2023 5:15 PM CDT [facility] Comment: Cholesterol, Total Reference Ranges Desirable <200 mg/dL Borderline 200-239 mg/dL High >=240 mg/dL TRIGLYCERIDES 267(H) <150 mg/dL 01/04/2023 5:15 PM CDT [facility] HDL CHOLESTEROL 40(L) >40 mg/dL 5:15 PM CDT [facility] NON-HDL CHOLESTEROL 169(H) <145 mg/dl 01/04/2023 5:15 PM CDT [facility] CHOL/HDL RATIO 5.23(H) <4.50 01/04/2023 5:15 PM CDT [facility] LDL CHOLESTEROL 116 <=130 mg/dL 01/04/2023 5:15 PM T [facility] VLDL CHOLESTEROL 53(H) <=30 mg/dL 01/04/2023 5:15 PM CDT [facility] PROVIDER ORDERED STATUS RANDOM 01/04/2023 5:15 PM CDT [facility] Blood BLOOD SPECIMEN / Unknown Butterfly / Unknown 01/04/2023 9:02 AM CDT 01/04/2023 9:02 AM CDT Librado Lieberman MD CHEMISTRY Final R esult [facility] [address] [place] [address], [place] * ANTI HCV (04/03/2022 4:55 PM HOSPITAL HOUSEKEEPER) HEPATITIS C ANTIBODY Non-React taya Non-React taya 04/05/2022 2:18 AM HOSPITAL HOUSEKEEPER [facility] Comment:Antibodies to HCV no t detected; does not exclude the possibility of exposure to HCV. Blood BLOOD SPECIMEN / Unknown Venipuncture / Unknown 04/03/2022 4:55 PM HOSPITAL HOUSEKEEPER 04/03/2022 4:55 PM HOSPITAL HOUSEKEEPER Amalia Gonzalez MD SEND OUTS Final Result [facility] [address] [place] [address], [place] * SENIOR SOFTWARE DEVELOPMENT ENGINEER THIN PREP PAP SCREEN IMAGED (03/18/2019 4:40 PM CDT) Case Report Gynecologic Cytology Report Case: [id number] Authorizing Provider: Brandi Araujo MD Collected: 03/18/2019 1640 Ordering Location: [facility] Received: 03/18/2019 1641 Clinic First Screen: Rocky Guerrero Specimen: SENIOR SOFTWARE DEVELOPMENT ENGINEER ThinPrep Vial Screening, Cervical 03/30/2019 11:26 AM HOSPITAL HOUSEKEEPER [employer] [facility] INTERPRETATION/ RESULT NEGATIVE FOR INTRAEPITHELIAL LESION OR MALIGNANCY (NIL) (none) 03/30/2019 11:26 AM HOSPITAL HOUSEKEEPER [facility] IMEN ADEQUACY Satisfactory for evaluation Endocervical component present 03/30/2019 11:26 AM HOSPITAL HOUSEKEEPER [employer] [facility] HPV REQUEST HPV and PAP 03/30/2019 11:26 AM HOSPITAL HOUSEKEEPER [employer] [facility] Date of LMP 03/11/19 03/30/2019 11:26 AM HOSPITAL HOUSEKEEPER [facility] Last Pap Date 201303/30/2019 11:26 AM HOSPITAL HOUSEKEEPER [facility] Last Pap Result NIL 11:26 AM HOSPITAL HOUSEKEEPER [facility] Abnormal Pap or Jaroso Bx in last 5 years No 03/30/2019 11:26 AM HOSPITAL HOUSEKEEPER [employer] [facility] Menstrual Status Regular Periods 03/30/2019 11:26 AM HOSPITAL HOUSEKEEPER [employer] [facility] Jaroso Bx Done Today No 03/30/2019 11:26 AM HOSPITAL HOUSEKEEPER [employer] [facility] Additional Information None given 03/30/2019 11:26 AM HOSPITAL HOUSEKEEPER [employer] [facility] Automated Review Successful 03/30/2019 11:26 AM [facility] Comment:Specimen processed s uccessfully by automated vehicle dynamics engineer device, ThinPrep Imaging System, [employer] ANCILLARY TESTING SENIOR SOFTWARE DEVELOPMENT ENGINEER HPV Ordered, Please see separate report 03/30/2019 11:26 AM HOSPITAL HOUSEKEEPER [facility] Note The pap test [...] lesions. Cytology is screened and interpreted at [facility] - [address], [place] [address] and [facility] - [address]; [place] [address] and [facility] - [address]; [place] [address] and [facility] [address]; [place] [address] 03/30/2019 11:26 AM [facility] Other (Cervical) Non-Blood / Unknown 03/18/2019 4:40 PM CDT 03/18/2019 4:41 PM CDT us Brandi Araujo MD PATHOLOGY/CYTOLOGY Final Result [facility] [address] [place] [address], [place] from Last 3 Months or Most Recently Relevant to Health Maintenance Insurance [facility] Advance Directives * Full Code (Latest Code [...] 7:23 PM 08/14/2012 9:44 PM Care Teams Dragger Out Relationship Specialty [place] [address] [place] [address] PCP - General Physician Payroll Director 06/04/24 Leigh Sidhu DO [facility] 06/28/12 Jenny Levy, MARIA R [address] [place] [address] Nurse Practitioner - Family 01/25/24
[2024-08-15 22:42] VITALS: BP 132/80; RESP 16; O2SAT 97
[2024-08-15] MEDS: MECLIZINE HCL 25 MG TABLET PO (23:04)
[2024-08-15 23:06] LABS: INR 0.94 (0.91-1.10); Prothrombin Time 13.3 Seconds
[2024-08-15 23:07] LABS: Partial Thromboplastin Time* 25 Seconds (23-33)
[2024-08-15] MEDS: diazePAM 5 MG TABLET PO (23:23)
[2024-08-16 00:58] VITALS: BP 138/76; PULSE 76; RESP 16
== END 2024-08-16 00:59 | disposition home or self-care (01) ==
PROVIDERS: Family Medicine; Emergency Provider Family Medicine
DX: R42 Dizziness and giddiness (principal)
CPT/HCPCS: 36415; 70450; 70496; 70498; 80053; 83735; 85025; 85610; 85730; 86140; 93005; 94761; 96374; 96375; 99285; A9270; J2060; J2405; J7030; Q9967